=== PATIENT | female | born 1940 | race Caucasian/White ===

== ENCOUNTER 2020-02-25 23:02 | Inpatient (IN) | payer MEDICARE ==
[~2020-02-25] VITALS: Ht 165.1 cm; Wt 59.0 kg
--- NOTE | 2020-02-25 23:20 | NUR ---
Patient BIB BLS transport from [facility] for inpatient psychiatric care. Patient on 5250 hold per report. Awaiting inpatient admission to MHU. COVID19 swab sent to ER LAB. MRSA Swab send to ER LAB
[2020-02-25] MEDS ORDERED: MULT-594 PO (23:33)
[2020-02-26] MEDS ORDERED: ENOX40DI SQ
[2020-02-26] MEDS ORDERED: FLUO40CA49 PO
[2020-02-26] MEDS ORDERED: HALO10TA13 PO
[2020-02-26] MEDS ORDERED: AMLO10TA7 PO
[2020-02-26] MEDS ORDERED: BENZ2TAB7 PO
[2020-02-26] MEDS ORDERED: FLUO20CA42 PO
[2020-02-26] MEDS ORDERED: MULT-594 PO
[2020-02-26] MEDS ORDERED: ASPI-1169 PO
[2020-02-26] MEDS ORDERED: SENN-261 PO
[2020-02-26] MEDS ORDERED: ENAL20TA18 PO
[2020-02-26] MEDS ORDERED: ATOR20TA PO
--- NOTE | 2020-02-26 00:25 | NUR ---
Patient in bed, no acute distress noted. VSS
--- NOTE | 2020-02-26 01:25 | NUR ---
Patient remains in bed, awaiting COVID19 results for inpatient admission. No acute distress noted. VSS
--- NOTE | 2020-02-26 03:13 | NUR ---
Patient in bed, no acute distress noted. Will continue to monitor patient. VSS
--- NOTE | 2020-02-26 03:47 | NUR ---
Pt. admitted to MHU , under care of Melvin Estes/Mahamed HENRY Belongs List completed
[2020-02-26] MEDS ORDERED: MAG HYDROX/AL HYDROX/SIMETH 30 ML LIQUID UDC PO PRN (04:15)
[2020-02-26] MEDS ORDERED: ACETAMINOPHEN 325 MG TABLET PO PRN (04:15)
[2020-02-26] MEDS ORDERED: MAGNESIUM HYDROXIDE 30 ML LIQUID UDC PO PRN (04:15)
[2020-02-26 05:15] VITALS: BP 125/78
--- NOTE | 2020-02-26 06:34 | NUR ---
Admission Note: 79 yr old female admitted to MHU under the care of Dr Irby and Dominic Rodrigues with a dx of Psychosis. Patient has a history of Schizophrenia and Depression. Patient arrived via gurney from ER brought in by staff, admitted on a 5250 for Gravely Disabled from [facility] [place] after Pt was found sitting in urine and feces and has suffered great decline as well as no PO intake. Upon admission to the unit, VS stable, denies pain, and is in no apparent physical distress. Upon evaluation, Pt is unkempt and disheveled; she is AOx1-2 Pt verbalized understanding. Patient was reluctant to sign all paperwork. Affect is flat, mood is depressed/low. Skin assessment completed patient presented with wounds as a result of multiple falls that were photographed and placed in the chart. Weak, unsteady gait noted, PT ordered. Home meds to be reconciled, orders received. Pt belongings inventoried, contraband placed in unit locker. Patient Rights handbook and Advisement and Pt rights handbook given, unit rules explained, Pt verbalized understanding. Patient to be oriented to the unit, the phone, the restrooms, and room during day shift. Q 15 minute rounding initiated for safety.
--- NOTE | 2020-02-26 08:00 | NUR ---
Awake, confused, angry, irritable. Refused lab draw and nursing care
--- NOTE | 2020-02-26 11:50 | NUR ---
JALEN Initial Discharge Plan: Patient lives at home [address] [place] [address] ([phone]) with her . Patient's daughter, Kindra Mina ([phone]) is involved in her care. Kindra wants the patient to come live with her and believes it is unsafe for the patient to return home as her is out of town. Patient wants to return home upon discharge. JALEN will continue to work with patient, family, and MD to ensure a safe and proper discharge plan.
--- NOTE | 2020-02-26 12:06 | NUR ---
JALEN Family Contact: JALEN spoke with patient's daughter, Kindra Mina ([phone]) who is involved in her care. Kindra expressed her concerns regarding the patient neglecting her care at home since her is out of town. Kindra stated that the patient's usually helps the patient with taking her medications, eating, showering, etc. Kindra stated hat she has consulted with a television cable installer regarding getting DPOA or Conservatorship of the patient but has not yet started the process. Kindra stated that she has arranged a room in her house for the patient to move in with her making it accessible for all her needs, however patient is refusing to move in with daughter. Patient' wants to go back home with her , however pt's travels a lot and not able to provide care realtime captioner. JALEN stated that we will continue to work with the patient and as she becomes more stable, we will work with the patient to determine the safest discharge plan.
--- NOTE | 2020-02-26 12:06 | NUR ---
Firearms Report: Acid Mixer completed and submitted a [employer] firearms report for 5250 grave disability certification. A copy of report has been placed in patient chart.
--- NOTE | 2020-02-26 13:00 | NUR ---
Placed on chair. Had shampoo and shower. Hair untangled. On octaviano chair, assisted with meals.
--- NOTE | 2020-02-26 15:57 | NUR ---
Less irritable and angry, able to redirect.
[2020-02-26] MEDS: GENTAMICIN SULFATE OPHT DROP 5 ML BOTTLE EACHEYE SCH ×2 (17:55→20:35)
--- NOTE | 2020-02-26 18:01 | NUR ---
Noted whitish eye discharge and redness of both eyes. Eye drops initiated a ordered
[2020-02-26] MEDS: HALOPERIDOL 5 MG TABLET PO SCH (18:42)
[2020-02-26] MEDS: BENZTROPINE MESYLATE 1 MG TABLET PO SCH (18:42)
[2020-02-26] MEDS: SENNOSIDES 1 TABLET PO SCH (20:45)
[2020-02-26] MEDS: ATORVASTATIN 20 MG TABLET PO SCH (20:45)
[2020-02-27 07:30] VITALS: BP 164/74
[2020-02-27 07:56] LABS: BASOPHILS # (AUTO) 0.1 K/uL (0.0-8.0); BASOPHILS % (AUTO) 0.8 % (0.0-2.0); EOSINOPHILS # (AUTO) 0.1 K/uL (0.0-0.7); EOSINOPHILS % (AUTO) 1.7 % (0.0-7.0); HEMATOCRIT 33.7 % (31.2-41.9); HEMOGLOBIN 11.2 g/dL (10.9-14.3); LYMPHOCYTES # (AUTO) 1.5 K/uL (20.0-40.0); LYMPHOCYTES % (AUTO) 22.2 % (20.5-51.5); MEAN CORPUSCULAR HEMOGLOBIN 27.2 uug (24.7-32.8); MEAN CORPUSCULAR HGB CONC 33 g/dL (32.3-35.6); MEAN CORPUSCULAR VOLUME 81.7 fL (75.5-95.3); MONOCYTES # (AUTO) 0.9 K/uL (2.0-10.0); MONOCYTES % (AUTO) 13.9 % (0.0-11.0); NEUTROPHILS % (AUTO) 61.4 % (38.5-71.5); PLATELET COUNT (AUTO) 345 K/uL (179-408); RED BLOOD CELL COUNT(AUTO) 4.13 MIL/uL (3.63-4.92); WHITE BLOOD COUNT (AUTO) 6.5 K/uL (3.8-11.8)
[2020-02-27 08:20] LABS: THYROID STIMULATING HORMONE 2.297 mIU/mL (0.358-3.740)
[2020-02-27 08:37] LABS: BILIRUBIN,TOTAL 0.8 mg/dL (0.2-1.0); CREATININE 0.7 mg/dL (0.6-1.3); MAGNESIUM 2.1 mg/dL (1.8-2.4); PHOSPHOROUS 2.8 mg/dL (2.5-4.9); TOTAL PROTEIN, SERUM 6.8 g/dL (6.4-8.2)
[2020-02-27] MEDS: BENZTROPINE MESYLATE 1 MG TABLET PO SCH ×2 (09:00→18:01)
[2020-02-27] MEDS: ASPIRIN 81 MG TAB.CHEW PO SCH (09:00)
[2020-02-27] MEDS: AMLODIPINE 10 MG TABLET PO SCH ×2 (09:00→20:02)
[2020-02-27] MEDS: FLUOXETINE HCL 20 MG CAPSULE PO SCH (09:00)
[2020-02-27] MEDS: HALOPERIDOL 5 MG TABLET PO SCH ×2 (09:00→18:01)
[2020-02-27] MEDS: GENTAMICIN SULFATE OPHT DROP 5 ML BOTTLE EACHEYE SCH ×4 (09:00→20:03)
[2020-02-27] MEDS: MULTIVITAMINS,THERAPEUTIC TABLET PO SCH (09:00)
--- NOTE | 2020-02-27 11:45 | NUR ---
Patient is isolated and withdrawn to her room, she is minimal interaction with staff and is not fully participating in assessment. Patient refused AM medications, states "I don't wan't them. You can take that away." Patient was provided with education about taking medication as prescribed, but continues to refuse. Patient denies SI/HI, AH/VH but she appears internally preoccupied. Patient keeps eyes closed during the entire conversation and refusing to interact with this policy writer typist. Patient is refusing to participate in unit groups, encouraged to participate in therapeutic milieu. patient also encouraged to practice active ROM in bed. bed is in low and locked position.
--- NOTE | 2020-02-27 13:30 | NUR ---
Patient was found by nursing staff laying on her back on the floor in front of her assigned bed. Bed is in low and locked position with bed alarm ringing. Nursing staff was alerted to the patient's room because the bed alarm was heard. Patient stated that she has to use the restroom which was the reason she got out of bed. Patient was assessed. She has no visible injuries. Patient denies pain, denies hitting head on the floor, denies dizziness or lightheadedness. Ambulation ability is at baseline. Patient states that she has a bowel movement. patient was assisted by 3 staff into octaviano-chair and assisted to the restroom. patient had a bowel movement and was able to urinate. Patient assisted back to octaviano chair. VS BP 161/72, HR 76, oxygen saturation 95% on room air, temp 98.1, pain 0/10. Patient is calm, cooperative, and able to communicate her needs to staff at this time. notified, waiting for call back.
--- NOTE | 2020-02-27 15:10 | NUR ---
Patient is resting calmly and quietly in octaviano-chair. She woke up to speak to family member on the phone. No distress noted at this time. NO reports of pain or discomfort. MD instructed to monitor patient.
[2020-02-27 16:00] VITALS: BP 158/72
--- NOTE | 2020-02-27 18:27 | NUR ---
patient has been refusing medications. patient has minimal interaction with staff, refusing to participate in conversation but able to state "yes" or "no" to questions. Patient was able to feed herself dinner and able to tolerate food well. she is sitting in octaviano chair calmly and quietly. patient instructed to inform staff of needs.
[2020-02-27 20:00] VITALS: BP 165/78
[2020-02-27] MEDS: ATORVASTATIN 20 MG TABLET PO SCH (20:09)
[2020-02-27] MEDS: SENNOSIDES 1 TABLET PO SCH (20:09)
--- NOTE | 2020-02-27 20:15 | NUR ---
Received patient in the hallway, sitting in a nataly chair, she is noted A/O x 2. (She knows her name and she knows she is the hospital but does not known the name of the hospital or why she is here). Patient noted calm at this time. she is noted evasive, and withdrawn. she continue asking, "take me to my room, take me to my room. Patient was reassured for her safety. Initial, she refused V/S, but after few redirections, she agreed to have her v/s taken. B/P read 167/78mmhg and pulse 68bpm. patient has been refusing all her medication during dayshift including her norvasc 10mg PO QAM. Dr. Meneses was notify and new order obtained to give Norvasc 10mg PO one time order since she missed her morning dose. and Catapres 0.1mg PO PRN SBP>160MMHM. Order were noted. patient agreed to take her Norvasc 10mg but refused her Qhs medication (senna-lax and lipitor) and catapre PO PRN; however, after multiple redirections, patient agree to take her gentamicin eye drops. Patient also refused snacks but was able to take PO fluids. Safety and fall precaution in place. Will continue to monitor B/P closely.
--- NOTE | 2020-02-27 21:54 | NUR ---
patient B/P is 120/69mmhg and 62 pulse. pt in no distress, sleeping comfortably in her room. Safety and fall precaution in place. will continue to monitor.
[2020-02-27 21:57] VITALS: BP 120/69
--- NOTE | 2020-02-28 07:06 | NUR ---
Patient slept for approx 7.30 hrs through the night. will continue to monitor.
[2020-02-28 07:30] VITALS: BP 166/67
[2020-02-28] MEDS: HALOPERIDOL 5 MG TABLET PO SCH ×2 (11:06→17:39)
[2020-02-28] MEDS: MULTIVITAMINS,THERAPEUTIC TABLET PO SCH (11:06)
[2020-02-28] MEDS: FLUOXETINE HCL 20 MG CAPSULE PO SCH (11:07)
[2020-02-28] MEDS: ASPIRIN 81 MG TAB.CHEW PO SCH (11:07)
[2020-02-28] MEDS: BENZTROPINE MESYLATE 1 MG TABLET PO SCH ×2 (11:08→17:39)
[2020-02-28] MEDS: AMLODIPINE 10 MG TABLET PO SCH (11:09)
[2020-02-28] MEDS: GENTAMICIN SULFATE OPHT DROP 5 ML BOTTLE EACHEYE SCH ×4 (11:13→20:12)
[2020-02-28 16:00] VITALS: BP 115/47
--- NOTE | 2020-02-28 17:35 | NUR ---
Unable to do EKG, pt is combative and refusing.. RN aware, sts try again tonight after meds given and pt is calm.. Will endorse to PM shift to follow up and perform EKG..
--- NOTE | 2020-02-28 19:58 | NUR ---
Patient received in the Kylee chair. Awake and alert, but confused. Patient is refusing all of her medications and her eye drops, despite much encouragement. Patient believes that the sports writer is her "daughter"whom she" went to court with". Multiple attempts to reorient this patient to the reality of the situation, place and staff. Patient seems agitated this evening and is being noncompliant. Continuing to monitor patient for safety and behavior escalation.
[2020-02-28 20:00] VITALS: BP 117/83
[2020-02-28] MEDS: ATORVASTATIN 20 MG TABLET PO SCH (20:13)
[2020-02-28] MEDS: SENNOSIDES 1 TABLET PO SCH (20:13)
[2020-02-29 07:30] VITALS: BP 147/65
[2020-02-29] MEDS: ASPIRIN 81 MG TAB.CHEW PO SCH ×2 (08:10→09:00)
[2020-02-29] MEDS: HALOPERIDOL 5 MG TABLET PO SCH ×3 (08:10→16:28)
[2020-02-29] MEDS: AMLODIPINE 10 MG TABLET PO SCH ×2 (08:11→09:00)
[2020-02-29] MEDS: BENZTROPINE MESYLATE 1 MG TABLET PO SCH ×3 (08:11→16:28)
[2020-02-29] MEDS: FLUOXETINE HCL 20 MG CAPSULE PO SCH ×2 (08:11→09:00)
[2020-02-29] MEDS: MULTIVITAMINS,THERAPEUTIC TABLET PO SCH ×2 (08:11→09:00)
[2020-02-29] MEDS: GENTAMICIN SULFATE OPHT DROP 5 ML BOTTLE EACHEYE SCH ×4 (08:12→20:23)
--- NOTE | 2020-02-29 11:07 | NUR ---
GPS NOTE: Patient given a shower this am, but was combative and hitting staff. Patient again refused to take medications despite education and encouragement. Doctors are aware. Patient is angry and irritable with communications writer and staff and unable to engage in any meaningful conversation . Appetite is poor. Continuing to provide a safe environment and monitor patients compliance. No acute behavioral issues at this time.
[2020-02-29 13:55] LABS: *BILIRUBIN,URIN NEGATIVE (NEGATIVE); *BLOOD, URINE NEGATIVE (NEGATIVE); *CLARITY,URINE CLEAR (CLEAR); *COLOR,URINE YELLOW (YELLOW); *KETONES,URINE NEGATIVE (NEGATIVE); LEUKOCYTE ESTERASE ,URINE 1+ (NEGATIVE); NITRITE, URINE NEGATIVE (NEGATIVE); UGLUCOSE NEGATIVE (NEGATIVE)
[2020-02-29 16:19] VITALS: BP 158/72
--- NOTE | 2020-02-29 17:14 | NUR ---
UA sent to lab. UTI noted. Doctor aware and orders received for antibiotics. Patient has been noncompliant with oral medications so far, will encourage and educate patient on the importance of medication compliance.
[2020-02-29 18:27] LABS: BACTERIA,URINE FEW /HPF (NONE SEEN); SQUAMOUS EPITHELIAL CELL,UR FEW /HPF (NONE SEEN)
[2020-02-29] MEDS: ATORVASTATIN 20 MG TABLET PO SCH (20:22)
[2020-02-29] MEDS: SENNOSIDES 1 TABLET PO SCH (20:31)
[2020-02-29 20:47] VITALS: BP 178/76
[2020-02-29] MEDS: CEphaleXIN 500 MG CAPSULE PO SCH (21:30)
--- NOTE | 2020-03-01 02:08 | NUR ---
RECEIVED PATIENT IN BED.NOTED ISOLATIVE WITH MINIMAL INTERACTION.ALSO MILDLY IRRITATED. MOOD LOW.DENIES SI/HI BUT ASKED "WHY AM I HERE"? I NEED TO GO FEED MY CAT WHO IS A ARTHUR".RE DIRECTED. SHE WAS MEDICATION COMPLIANT.SNACKS GIVEN AND WELL TAKEN.VISUAL CHECKS MADE ON HER FOR SAFETY AND BED ALARMS SET.WILL CONTINUE TO MONITOR.
[2020-03-01] MEDS: CEphaleXIN 500 MG CAPSULE PO SCH ×3 (06:26→22:00)
--- NOTE | 2020-03-01 06:47 | NUR ---
SLEPT FOR 4:45HOURS. SHE IS MED COMPLIANT.
[2020-03-01] MEDS: BENZTROPINE MESYLATE 1 MG TABLET PO SCH ×3 (09:00→17:00)
[2020-03-01] MEDS: HALOPERIDOL 5 MG TABLET PO SCH ×3 (09:00→17:00)
[2020-03-01] MEDS: FLUOXETINE HCL 20 MG CAPSULE PO SCH ×2 (09:00→09:33)
[2020-03-01] MEDS: AMLODIPINE 10 MG TABLET PO SCH ×2 (09:00→09:33)
[2020-03-01] MEDS: MULTIVITAMINS,THERAPEUTIC TABLET PO SCH ×2 (09:00→09:33)
[2020-03-01] MEDS: GENTAMICIN SULFATE OPHT DROP 5 ML BOTTLE EACHEYE SCH ×3 (09:00→12:54)
[2020-03-01] MEDS: ASPIRIN 81 MG TAB.CHEW PO SCH ×2 (09:00→09:33)
[2020-03-01 09:16] VITALS: BP 158/85
[2020-03-01 17:38] VITALS: BP 159/64
[2020-03-01 20:00] VITALS: BP 156/72
[2020-03-01] MEDS: ATORVASTATIN 20 MG TABLET PO SCH (20:08)
[2020-03-01] MEDS: SENNOSIDES 1 TABLET PO SCH (20:08)
--- NOTE | 2020-03-01 22:05 | NUR ---
Pt refused all HS medications despite multiple prompts. cafe team member aware.
[2020-03-01] MEDS ORDERED: CLONIDINE-TTS 1 PATCH TD ONE (22:34)
[2020-03-01] MEDS: CLONIDINE-TTS 1 PATCH TD SCH (22:35)
--- NOTE | 2020-03-01 22:45 | NUR ---
Pharmacy Note: Clonidine patch administered late due to it not being available in the [facility]. Nurse machine operations supervisor brought it to MHU at 2215. Patch placed at 2235 on (R) upper shoulder.
--- NOTE | 2020-03-02 05:34 | NUR ---
Received Pt in bed sleeping, extremely angry upon waking. Pt yelled at this proposal writer to leave her alone. Remains uncooperative and continues to refuse all medications despite being educated on the benefits of taking it and the risks of refusing. Exhibits poor anger management and impaired judgement as Pt denies any need for help and believes nothing is wrong with her. Pt is uncooperative with staff and non-compliant with treatment and care. No c/o pain, initially refused HS VS, then allowed another staff member to take them. BP elevated st beginning of shift, Clonidine patch applied, Pt refused BP re-check. In no apparent physical distress. Remains a high fall risk, Pt's gait is very unsteady and she refuses to use the FWW provided for her. FWW remains at bedside, Pt re-educated regarding personal safety and encouraged to use the walker. Pt remains resistant to staff direction and care.
[2020-03-02] MEDS: CEphaleXIN 500 MG CAPSULE PO SCH ×3 (06:00→22:00)
[2020-03-02 07:44] VITALS: BP 160/83
[2020-03-02] MEDS: ASPIRIN 81 MG TAB.CHEW PO SCH (08:32)
[2020-03-02] MEDS: MULTIVITAMINS,THERAPEUTIC TABLET PO SCH (08:32)
[2020-03-02] MEDS: FLUOXETINE HCL 20 MG CAPSULE PO SCH (08:32)
[2020-03-02] MEDS: BENZTROPINE MESYLATE 1 MG TABLET PO SCH ×2 (08:32→16:31)
[2020-03-02] MEDS: AMLODIPINE 10 MG TABLET PO SCH (08:32)
[2020-03-02] MEDS: HALOPERIDOL 5 MG TABLET PO SCH ×2 (08:32→16:31)
--- NOTE | 2020-03-02 10:56 | NUR ---
JALEN Individual Intervention: SW met with patient to provide brief individual counseling and help patient to gain insight into her presenting problems. Patient presents agitated and verbally aggressive. Patient yelled at this writer producer "Go away!". This writer producer encouraged patient to join group and interact with peers however patient was not very receptive at this time due to her labile mood.
--- NOTE | 2020-03-02 13:51 | NUR ---
GPS: Nursing Notes: Noncompliance with Medication: Patient is awake and responding to her name, poor anger management, resistant with nursing care, gets easily irritable when redirected, loud and pressured speech, refusing her medications, believes that there is nothing wrong with her, poor appetite, disorganized, disoriented, explained the pros and cons of medications, but stated "GO AWAY...STUPID..", "I AM NOT A PATIENT HERE.. YOU ARE A LIAR..", unable to formulate a viable plan for self care, continue with treatment plan.
[2020-03-02 16:00] VITALS: BP 142/77
[2020-03-02 19:43] VITALS: BP 131/66
[2020-03-02] MEDS: ATORVASTATIN 20 MG TABLET PO SCH (20:08)
[2020-03-02] MEDS: SENNOSIDES 1 TABLET PO SCH (20:08)
[2020-03-03] MEDS: CEphaleXIN 500 MG CAPSULE PO SCH ×3 (06:00→21:20)
[2020-03-03 07:30] VITALS: BP 139/67
[2020-03-03] MEDS: BENZTROPINE MESYLATE 1 MG TABLET PO SCH ×2 (08:50→17:32)
[2020-03-03] MEDS: HALOPERIDOL 5 MG TABLET PO SCH ×2 (08:50→17:32)
[2020-03-03] MEDS: FLUOXETINE HCL 20 MG CAPSULE PO SCH (08:50)
[2020-03-03] MEDS: ASPIRIN 81 MG TAB.CHEW PO SCH (08:58)
[2020-03-03] MEDS: AMLODIPINE 10 MG TABLET PO SCH (08:59)
[2020-03-03] MEDS: MULTIVITAMINS,THERAPEUTIC TABLET PO SCH (09:00)
[2020-03-03 16:00] VITALS: BP 121/77
[2020-03-03 20:35] VITALS: BP 122/61
[2020-03-03] MEDS: SENNOSIDES 1 TABLET PO SCH (21:20)
[2020-03-03] MEDS: ATORVASTATIN 20 MG TABLET PO SCH (21:20)
--- NOTE | 2020-03-03 22:32 | NUR ---
Nursing note: Received patient in the hallway sitting in a nataly chair. Patient noted A/O x 2. (name and place) she is noted calm upon approached. Pt was able to comply with [facility] medications (there are no psychotropic medication schedule at [facility]). she is poor hisorian. V/S stable. pt is reassured for her safety. safety and fall precaution in place. will continue to monitor
[2020-03-04] MEDS: CEphaleXIN 500 MG CAPSULE PO SCH ×3 (06:00→21:06)
[2020-03-04 08:48] VITALS: BP 141/71
[2020-03-04] MEDS: BENZTROPINE MESYLATE 1 MG TABLET PO SCH ×2 (09:00→17:00)
[2020-03-04] MEDS: HALOPERIDOL 5 MG TABLET PO SCH ×2 (09:00→17:00)
[2020-03-04] MEDS: FLUOXETINE HCL 20 MG CAPSULE PO SCH (09:00)
[2020-03-04] MEDS: MULTIVITAMINS,THERAPEUTIC TABLET PO SCH (09:00)
[2020-03-04] MEDS: AMLODIPINE 10 MG TABLET PO SCH (09:00)
[2020-03-04] MEDS: ASPIRIN 81 MG TAB.CHEW PO SCH (09:00)
--- NOTE | 2020-03-04 10:07 | NUR ---
Patient is isolative, withdrawn, and guarded. She has minimal interaction with staff and peers. During assessment, she only answers with "yes" or "no" and shakes her head. Patient refused all medications this AM. When given medications, she kept the blanket pulled over head head. Patient was provided with education about the importance of taking medication as prescribed, but refuses. Patient denies SI/HI, AH/VH but she appears internally preoccupied. Patient is refusing to participate in unit groups, encouraged to participate in therapeutic milieu. Patient also encouraged to practice active ROM in bed. Bed is in low and locked position with bed alarm on.
[2020-03-04 15:02] VITALS: BP 97/78
[2020-03-04] MEDS: HALOPERIDOL LACTATE 5 MG/1 ML VIAL IM PRN (17:04)
[2020-03-04 20:00] VITALS: BP 126/61
[2020-03-04] MEDS: ATORVASTATIN 20 MG TABLET PO SCH (20:25)
[2020-03-04] MEDS: SENNOSIDES 1 TABLET PO SCH (20:25)
[2020-03-05] MEDS: CEphaleXIN 500 MG CAPSULE PO SCH ×2 (06:00→14:00)
--- NOTE | 2020-03-05 06:52 | NUR ---
patient slept for approx. 6.30hrs through the night. will continue to monitor.
[2020-03-05 07:30] VITALS: BP 167/75
[2020-03-05] MEDS: MULTIVITAMINS,THERAPEUTIC TABLET PO SCH (09:00)
[2020-03-05] MEDS: BENZTROPINE MESYLATE 1 MG TABLET PO SCH ×2 (09:00→17:00)
[2020-03-05] MEDS: HALOPERIDOL 5 MG TABLET PO SCH ×2 (09:00→17:00)
[2020-03-05] MEDS: AMLODIPINE 10 MG TABLET PO SCH (09:00)
[2020-03-05] MEDS: FLUOXETINE HCL 20 MG CAPSULE PO SCH (09:00)
[2020-03-05] MEDS: ASPIRIN 81 MG TAB.CHEW PO SCH (09:00)
[2020-03-05] MEDS: ENSURE WITH FIBER 237 ML LIQUID (CHOCOLATE) PO SCH ×2 (10:15→17:00)
--- NOTE | 2020-03-05 10:55 | NUR ---
JALEN APS Report: JALEN submitted an APS report (Intake ID [id number]) on 03/05/2020 at 10:55 AM due to patient self-neglect.
--- NOTE | 2020-03-05 11:06 | NUR ---
JALEN APS Contact: JALEN spoke with JALEN Gomez from [facility]PS ([phone]) regarding patient's treatment and discharge plan. Patricia stated to keep her informed of the patient's status and discharge updates.
--- NOTE | 2020-03-05 11:21 | NUR ---
JALEN Individual Intervention: SW met with patient in order to discuss discharge planning and options. Patient looked blankly at this tech writer and did not verbally respond. Patient attempted to ask patient questions and patient was mute and did not acknowledge this writers presence.
--- NOTE | 2020-03-05 11:34 | NUR ---
JALEN Coordination of Care: SW [facility]
[2020-03-05] MEDS: HALOPERIDOL LACTATE 5 MG/1 ML VIAL IM PRN (12:21)
--- NOTE | 2020-03-05 14:57 | NUR ---
JALEN Family Contact: JALEN spoke with patient's daughter, Kindra Mina ([phone]) regarding discharge plan. This telegraphic typewriter operator chief explained that APS is involved and this case was discussed with the treatment team that the patient is not safe to go back home upon discharge. Kindra was on board and stated that she agrees with this plan and [facility] the [facility] [place] upon discharge.
[2020-03-05] MEDS ORDERED: HALOPERIDOL DECANOATE 50 MG/1 ML AMPUL IM ONE (16:00)
[2020-03-05 20:12] VITALS: BP 145/76
[2020-03-05] MEDS: SENNOSIDES 1 TABLET PO SCH (20:58)
[2020-03-05] MEDS: ATORVASTATIN 20 MG TABLET PO SCH (20:58)
[2020-03-06 07:30] VITALS: BP 137/68
[2020-03-06] MEDS: ENSURE WITH FIBER 237 ML LIQUID (CHOCOLATE) PO SCH ×2 (09:00→17:46)
[2020-03-06] MEDS: MULTIVITAMINS,THERAPEUTIC TABLET PO SCH (09:00)
[2020-03-06] MEDS: BENZTROPINE MESYLATE 1 MG TABLET PO SCH ×2 (09:00→17:25)
[2020-03-06] MEDS: ASPIRIN 81 MG TAB.CHEW PO SCH (09:00)
[2020-03-06] MEDS: AMLODIPINE 10 MG TABLET PO SCH (09:00)
[2020-03-06] MEDS: HALOPERIDOL 5 MG TABLET PO SCH ×2 (09:00→17:24)
[2020-03-06] MEDS: FLUOXETINE HCL 20 MG CAPSULE PO SCH (09:00)
[2020-03-06] MEDS: HALOPERIDOL LACTATE 5 MG/1 ML VIAL IM PRN (11:02)
[2020-03-06 16:00] VITALS: BP 103/55
[2020-03-06] MEDS: ATORVASTATIN 20 MG TABLET PO SCH (20:19)
[2020-03-06] MEDS: SENNOSIDES 1 TABLET PO SCH (20:19)
[2020-03-06 20:20] VITALS: BP 116/60
[2020-03-06] MEDS: TEMAZEPAM 7.5 MG CAPSULE PO PRN (23:42)
--- NOTE | 2020-03-07 06:12 | NUR ---
GPS: Remain calm and cooperative with meds and care. slept 6 hrs through the night after sleeping meds given. assisted with adl's. continue plan of care.
[2020-03-07 07:30] VITALS: BP 164/95
[2020-03-07] MEDS: ENSURE WITH FIBER 237 ML LIQUID (CHOCOLATE) PO SCH ×2 (08:00→17:00)
[2020-03-07] MEDS: HALOPERIDOL 5 MG TABLET PO SCH ×2 (08:57→20:25)
[2020-03-07] MEDS: AMLODIPINE 10 MG TABLET PO SCH (08:58)
[2020-03-07] MEDS: ASPIRIN 81 MG TAB.CHEW PO SCH (08:58)
[2020-03-07] MEDS: BENZTROPINE MESYLATE 1 MG TABLET PO SCH ×2 (08:58→20:25)
[2020-03-07] MEDS: FLUOXETINE HCL 20 MG CAPSULE PO SCH (08:59)
[2020-03-07] MEDS: MULTIVITAMINS,THERAPEUTIC TABLET PO SCH (09:00)
[2020-03-07] MEDS: CLONIDINE HCL 0.1 MG TABLET PO PRN (16:32)
[2020-03-07 16:54] VITALS: BP 196/85
[2020-03-07] MEDS ORDERED: BENZTROPINE MESYLATE 0.5 MG TABLET PO SCH (17:00)
[2020-03-07 18:20] VITALS: BP 92/52
--- NOTE | 2020-03-07 18:25 | NUR ---
noted patient's B/P 196/88,Catapres 0.1 mg given then rechecked B/P 92/52.
[2020-03-07 20:20] VITALS: BP 94/51
[2020-03-07] MEDS: ATORVASTATIN 20 MG TABLET PO SCH (20:26)
[2020-03-07] MEDS: SENNOSIDES 1 TABLET PO SCH (20:32)
--- NOTE | 2020-03-08 03:07 | NUR ---
RECEIVED PATIENT IN BED. APPEARS ISOLATIVE,WITHDRAWN AND MOOD WAS LOW. GUARDED WITH MINIMAL INTERACTION WITH STAFF. REFUSED TO SAY IF SHE HAS AH/VH. NOTED ALSO WITH UNSTEADY GAIT AND SAFETY MEASURES PUT IN PLACE. SHE IS HOWEVER MEDICATION COMPLIANT WITH 2 PROMPTING.VISUA CHECKS MADE ON HER FOR SAFETY. WILL CONTINUE TO MONITOR.
--- NOTE | 2020-03-08 06:34 | NUR ---
SHE SLEPT WELL FOR 7:30HOURS.SHE ALSO HAD A SHOWER.
[2020-03-08] MEDS: AMLODIPINE 10 MG TABLET PO SCH (09:00)
[2020-03-08] MEDS: BENZTROPINE MESYLATE 1 MG TABLET PO SCH ×2 (09:46→20:38)
[2020-03-08] MEDS: ASPIRIN 81 MG TAB.CHEW PO SCH (09:46)
[2020-03-08] MEDS: FLUOXETINE HCL 20 MG CAPSULE PO SCH (09:46)
[2020-03-08] MEDS: HALOPERIDOL 5 MG TABLET PO SCH ×2 (09:46→20:39)
[2020-03-08] MEDS: MULTIVITAMINS,THERAPEUTIC TABLET PO SCH (10:03)
[2020-03-08] MEDS: ENSURE WITH FIBER 237 ML LIQUID (CHOCOLATE) PO SCH ×2 (10:03→17:01)
--- NOTE | 2020-03-08 15:10 | NUR ---
Received patient in her assigned bed, bed is in low and locked position. patient is guarded, withdrawn, and restless. She is unable to maintain a linear and logical conversation with staff. she believes that her is coming to visit her. her speech is hyperverbal and tangential. patient denies SI/HI, denies AH/VH but appears internally preoccupied. patient is adherent with medication, no adverse reaction noted. she is instructed to communicate needs to staff appropriately, educated about impulse control. patient requires frequent redirection and reality orientation.
[2020-03-08 15:39] VITALS: BP 133/58
[2020-03-08] MEDS ORDERED: HALOPERIDOL DECANOATE 50 MG/1 ML AMPUL IM ONE (16:00)
[2020-03-08 20:36] VITALS: BP 146/64
[2020-03-08] MEDS: ATORVASTATIN 20 MG TABLET PO SCH (20:39)
[2020-03-08] MEDS: SENNOSIDES 1 TABLET PO SCH (20:48)
[2020-03-08] MEDS: CLONIDINE-TTS 1 PATCH TD SCH (21:02)
--- NOTE | 2020-03-09 02:41 | NUR ---
RECEIVED PATIENT IN BED. APPEARS ISOLATIVE,WITHDRAWN AND MOOD WAS LOW. GUARDED WITH MINIMAL INTERACTION THAT IS TANGENTIAL.APPEARS INTERNALLY PRE OCCUPIED. SHE INITIALLY REFUSED HER MEDICATIONS EVEN WITH SEVERAL PROMPTING AND SAID"YOU WILL NOT GIVE ME SOMETHING ELSE YOU DAUGHTER OF JULIET".'ITS THE TRUTH'. SHE ALSO ASKED FOR A CIGARETTE. SHE WAS TOLD THIS IS A NON SMOKING FACILITY. AFTER A WHILE SHE TOOK HER MEDICATION FROM ANOTHER NURSE. NOTED WITH UNSTEADY GAIT AND SAFETY MEASURES PUT IN PLACE. VISUAL CHECKS MADE ON HER FOR SAFETY. WILL CONTINUE TO MONITOR.
--- NOTE | 2020-03-09 06:37 | NUR ---
SHE SLEPT FOR 5:00HOURS
[2020-03-09 07:30] VITALS: BP 167/61
[2020-03-09] MEDS: FLUOXETINE HCL 20 MG CAPSULE PO SCH (08:21)
[2020-03-09] MEDS: BENZTROPINE MESYLATE 1 MG TABLET PO SCH ×2 (08:21→20:47)
[2020-03-09] MEDS: AMLODIPINE 10 MG TABLET PO SCH (08:22)
[2020-03-09] MEDS: ASPIRIN 81 MG TAB.CHEW PO SCH (08:22)
[2020-03-09] MEDS: HALOPERIDOL 5 MG TABLET PO SCH ×2 (08:22→20:47)
[2020-03-09] MEDS: ENSURE WITH FIBER 237 ML LIQUID (CHOCOLATE) PO SCH ×2 (08:29→16:40)
[2020-03-09] MEDS: MULTIVITAMINS,THERAPEUTIC TABLET PO SCH (08:30)
[2020-03-09 16:30] VITALS: BP 93/64
--- NOTE | 2020-03-09 18:23 | NUR ---
patient compliant with all medication ,up to octaviano-chair ,assisted with all ADLS, will continue close monitoring.
[2020-03-09 19:59] VITALS: BP 129/61
[2020-03-09] MEDS: SENNOSIDES 1 TABLET PO SCH (20:47)
[2020-03-09] MEDS: ATORVASTATIN 20 MG TABLET PO SCH (20:47)
[2020-03-10 08:50] LABS: BASOPHILS # (AUTO) 0.1 K/uL (0.0-8.0); BASOPHILS % (AUTO) 0.8 % (0.0-2.0); EOSINOPHILS # (AUTO) 0.1 K/uL (0.0-0.7); EOSINOPHILS % (AUTO) 1.2 % (0.0-7.0); HEMATOCRIT 38.8 % (31.2-41.9); HEMOGLOBIN 12.7 g/dL (10.9-14.3); LYMPHOCYTES % (AUTO) 14.1 % (20.5-51.5); MEAN CORPUSCULAR HEMOGLOBIN 27.1 uug (24.7-32.8); MEAN CORPUSCULAR HGB CONC 33 g/dL (32.3-35.6); MEAN CORPUSCULAR VOLUME 82.8 fL (75.5-95.3); MONOCYTES # (AUTO) 0.6 K/uL (2.0-10.0); MONOCYTES % (AUTO) 8.9 % (0.0-11.0); NEUTROPHILS # (AUTO) 5.3 K/uL (1.8-8.9); PLATELET COUNT (AUTO) 429 K/uL (179-408); RED BLOOD CELL COUNT(AUTO) 4.69 MIL/uL (3.63-4.92); WHITE BLOOD COUNT (AUTO) 7.1 K/uL (3.8-11.8)
[2020-03-10 08:59] LABS: CREATININE 0.9 mg/dL (0.6-1.3)
[2020-03-10 09:00] VITALS: BP 100/35
[2020-03-10] MEDS: AMLODIPINE 10 MG TABLET PO SCH (09:00)
[2020-03-10] MEDS: MULTIVITAMINS,THERAPEUTIC TABLET PO SCH (09:22)
[2020-03-10] MEDS: FLUOXETINE HCL 20 MG CAPSULE PO SCH (09:22)
[2020-03-10] MEDS: HALOPERIDOL 5 MG TABLET PO SCH ×2 (09:22→20:39)
[2020-03-10] MEDS: ASPIRIN 81 MG TAB.CHEW PO SCH (09:23)
[2020-03-10] MEDS: ENSURE WITH FIBER 237 ML LIQUID (CHOCOLATE) PO SCH ×2 (09:23→16:56)
[2020-03-10] MEDS: BENZTROPINE MESYLATE 1 MG TABLET PO SCH ×2 (09:30→20:39)
[2020-03-10 16:00] VITALS: BP 125/46
[2020-03-10 20:04] VITALS: BP 145/62
[2020-03-10] MEDS: SENNOSIDES 1 TABLET PO SCH (20:39)
[2020-03-10] MEDS: ATORVASTATIN 20 MG TABLET PO SCH (20:39)
[2020-03-11 07:30] VITALS: BP 160/71
--- NOTE | 2020-03-11 08:45 | NUR ---
JALEN FAMILY CONTACT: JALEN spoke with patient's daughter, Kindra Mina ([phone]) regarding discharge plan. Daughter wants the [facility] to [facility] [place] upon discharge.
[2020-03-11] MEDS: ENSURE WITH FIBER 237 ML LIQUID (CHOCOLATE) PO SCH ×2 (08:47→17:32)
[2020-03-11] MEDS: ASPIRIN 81 MG TAB.CHEW PO SCH (08:49)
[2020-03-11] MEDS: BENZTROPINE MESYLATE 1 MG TABLET PO SCH ×2 (08:49→20:50)
[2020-03-11] MEDS: FLUOXETINE HCL 20 MG CAPSULE PO SCH (08:50)
[2020-03-11] MEDS: AMLODIPINE 10 MG TABLET PO SCH (08:50)
[2020-03-11] MEDS: MULTIVITAMINS,THERAPEUTIC TABLET PO SCH (08:50)
[2020-03-11] MEDS: HALOPERIDOL 5 MG TABLET PO SCH ×2 (08:50→20:50)
--- NOTE | 2020-03-11 09:07 | NUR ---
JALEN FAMILY CONTACT: SW spoke with patient's daughter, Kindra Mina ([phone]) and informed her pt will be discharged on [facility]15/[facility] [place]. Daughter agreed with discharge plan.
--- NOTE | 2020-03-11 12:12 | NUR ---
Received patient in her assigned bed, bed is in low and locked position. patient is isolative to her assigned room, guarded, and withdrawn. She is able to make needs known to staff and to follow direction. she is disheveled. her speech is garbled and she is hyperverbal. patient denies SI/HI, denies AH/VH. patient is adherent with medication, no adverse reaction noted. she is instructed to communicate needs to staff appropriately, educated about impulse control. patient requires frequent redirection and reality orientation.
[2020-03-11 16:22] VITALS: BP 127/61
[2020-03-11] MEDS: CLONIDINE HCL 0.1 MG TABLET PO PRN (20:50)
[2020-03-11] MEDS: ATORVASTATIN 20 MG TABLET PO SCH (20:50)
[2020-03-11] MEDS: SENNOSIDES 1 TABLET PO SCH (20:50)
--- NOTE | 2020-03-11 20:50 | NUR ---
GPS: Pt's b/p 168/73. Denies headaches,n/v nor any c/o pain verbalized. Clonidine 0.1mg PO given for SBP>160. Will monitor effectiveness.
--- NOTE | 2020-03-11 22:10 | NUR ---
GPS: Pt.refusing to have B/P re-checked despite explanation of importance. Benefits explained but continues to refuse. Pt.asymptomatic at this time.
[2020-03-12 07:30] VITALS: BP 119/45
[2020-03-12] MEDS: FLUOXETINE HCL 20 MG CAPSULE PO SCH (08:31)
[2020-03-12] MEDS: ASPIRIN 81 MG TAB.CHEW PO SCH (08:31)
[2020-03-12] MEDS: MULTIVITAMINS,THERAPEUTIC TABLET PO SCH (08:31)
[2020-03-12] MEDS: HALOPERIDOL 5 MG TABLET PO SCH ×2 (08:31→20:10)
[2020-03-12] MEDS: BENZTROPINE MESYLATE 1 MG TABLET PO SCH ×2 (08:31→20:06)
[2020-03-12] MEDS: ENSURE WITH FIBER 237 ML LIQUID (CHOCOLATE) PO SCH ×2 (08:32→17:00)
[2020-03-12] MEDS: AMLODIPINE 10 MG TABLET PO SCH (08:32)
[2020-03-12 19:49] VITALS: BP 125/60
[2020-03-12] MEDS: SENNOSIDES 1 TABLET PO SCH (20:06)
[2020-03-12] MEDS: ATORVASTATIN 20 MG TABLET PO SCH (20:07)
--- NOTE | 2020-03-13 05:13 | NUR ---
GPS - No new changes noted, pt cooperative with routine medications. Still noted confusion and forgetfulness. Was able to redirect with minor behavior during night. Kept safe with frequent head check continue.
[2020-03-13 07:30] VITALS: BP 124/55
[2020-03-13] MEDS: BENZTROPINE MESYLATE 1 MG TABLET PO SCH ×2 (08:32→21:32)
[2020-03-13] MEDS: FLUOXETINE HCL 20 MG CAPSULE PO SCH (08:32)
[2020-03-13] MEDS: ASPIRIN 81 MG TAB.CHEW PO SCH (08:32)
[2020-03-13] MEDS: AMLODIPINE 10 MG TABLET PO SCH (08:33)
[2020-03-13] MEDS: HALOPERIDOL 5 MG TABLET PO SCH ×2 (08:33→21:32)
[2020-03-13] MEDS: MULTIVITAMINS,THERAPEUTIC TABLET PO SCH (08:35)
[2020-03-13] MEDS: ENSURE WITH FIBER 237 ML LIQUID (CHOCOLATE) PO SCH ×2 (08:37→16:07)
[2020-03-13 16:00] VITALS: BP 135/63
--- NOTE | 2020-03-13 16:28 | NUR ---
refused blood draw today, will try do in am
--- NOTE | 2020-03-13 18:09 | NUR ---
resting well in room, oob to hallway via [employer] , tolerated well. spoke with daughter, shannan, glad of conversation. denies any pain or discomfort. appetite fair. refused blood draw, able to obtain urine for lab. anxious for possible discharge.
--- NOTE | 2020-03-13 18:31 | NUR ---
error, no urine obtained, had x 1 bm.
--- NOTE | 2020-03-13 18:41 | NUR ---
patient refused to obtain urine by straight cath, will do in am to void.
[2020-03-13 20:00] VITALS: BP 144/63
[2020-03-13] MEDS: CLONAZEPAM 0.5 MG TABLET PO PRN ×2 (21:32→22:35)
[2020-03-13] MEDS: ATORVASTATIN 20 MG TABLET PO SCH (21:32)
[2020-03-13] MEDS: SENNOSIDES 1 TABLET PO SCH (21:32)
--- NOTE | 2020-03-14 04:52 | NUR ---
GPS/NSG Patient first observed lying in bed appeared to be asleep. Disheveled/unkempt appearance, guarded on approach, poor impulse control. Patient compliant with HS medication with minimal prompting. Patient requires moderate assist to the bathroom, able to ambulate however gait observed to be unsteady. Continue to monitor for safety as well as provide a therapeutic environment. Plan of Care in place.
[2020-03-14 07:30] VITALS: BP 141/60
[2020-03-14] MEDS: ENSURE WITH FIBER 237 ML LIQUID (CHOCOLATE) PO SCH ×2 (08:29→17:31)
[2020-03-14] MEDS: HALOPERIDOL 5 MG TABLET PO SCH ×2 (08:32→21:12)
[2020-03-14] MEDS: AMLODIPINE 10 MG TABLET PO SCH (08:32)
[2020-03-14] MEDS: ASPIRIN 81 MG TAB.CHEW PO SCH (08:32)
[2020-03-14] MEDS: MULTIVITAMINS,THERAPEUTIC TABLET PO SCH (08:32)
[2020-03-14] MEDS: BENZTROPINE MESYLATE 1 MG TABLET PO SCH ×2 (08:32→21:12)
[2020-03-14] MEDS ORDERED: FLUOXETINE HCL 20 MG CAPSULE PO SCH (09:00)
[2020-03-14] MEDS: FLUOXETINE HCL 10 MG CAPSULE PO SCH (09:24)
--- NOTE | 2020-03-14 11:54 | NUR ---
patient sitting in bed isolative and withdrawn, cooperative, redirectable, minimal interaction with staff. Patient minimally participates in assessment, she stays quiet and only answers with short responses. Patient denies SI/HI, denies AH/VH but appears internally preoccupied. patient is adherent with medication after prompting. patient is encouraged to participate in the unit groups and milieu but she refuses. bed is in low and locked position.
[2020-03-14 15:13] VITALS: BP 138/63
[2020-03-14 20:03] VITALS: BP 140/62
[2020-03-14] MEDS: SENNOSIDES 1 TABLET PO SCH (21:12)
[2020-03-14] MEDS: ATORVASTATIN 20 MG TABLET PO SCH (21:12)
[2020-03-14] MEDS: TEMAZEPAM 7.5 MG CAPSULE PO PRN (21:12)
--- NOTE | 2020-03-15 06:13 | NUR ---
GPS/NSG Patient first observed lying in bed appeared to be asleep. Disheveled/unkempt appearance, guarded on approach, provides short responses, demonstrates poor impulse control when attempts to engage are made. Patient compliant with HS medication with minimal prompting. Patient requires moderate assist to the bathroom, able to ambulate however gait observed to be unsteady. Continue to monitor for safety as well as provide a therapeutic environment. Continue Plan of Care. Addendum: 03/15/20 at 0630 by THANIA SEBASTIAN RN Patient refused a.m. labs ordered for today. Asked lab to retry later, will andorse to oncoming shift.
[2020-03-15 07:30] VITALS: BP 140/65
--- NOTE | 2020-03-15 08:29 | NUR ---
SW Discharge Note: Patient will be discharged to [facility] [address] [place] [address] ([phone]). Patient will be provided Ambulance transportation at 12PM. Spoke with Val, Admin Coordinator at the facility who states they are ready to accept the patient today. Patient is aware and agreeable with discharge plans. Patient is unable to plan for self-care at this time, however, is willing to accept care at [facility]. Patient denies any suicidal or homicidal ideation. Patient will follow-up at the facility with Dr. Irby Psychiatrist and Dr. Garcia Tent Worker. Patient presents with calm mood and congruent affect. Pts daughter, Kindra ([phone]) is aware and agreeable with discharge plan.
[2020-03-15] MEDS: FLUOXETINE HCL 10 MG CAPSULE PO SCH (08:48)
[2020-03-15] MEDS: BENZTROPINE MESYLATE 1 MG TABLET PO SCH (08:48)
[2020-03-15] MEDS: HALOPERIDOL 5 MG TABLET PO SCH (08:48)
[2020-03-15] MEDS: ASPIRIN 81 MG TAB.CHEW PO SCH (08:48)
[2020-03-15] MEDS: MULTIVITAMINS,THERAPEUTIC TABLET PO SCH (08:48)
[2020-03-15 08:49] VITALS: BP 140/65
[2020-03-15] MEDS: ENSURE WITH FIBER 237 ML LIQUID (CHOCOLATE) PO SCH (08:49)
[2020-03-15] MEDS: AMLODIPINE 10 MG TABLET PO SCH (08:49)
[2020-03-15 14:40] LABS: BASOPHILS % (AUTO) 0.9 % (0.0-2.0); EOSINOPHILS # (AUTO) 0.1 K/uL (0.0-0.7); EOSINOPHILS % (AUTO) 2.7 % (0.0-7.0); HEMATOCRIT 34.6 % (31.2-41.9); HEMOGLOBIN 11.5 g/dL (10.9-14.3); LYMPHOCYTES % (AUTO) 22.2 % (20.5-51.5); MEAN CORPUSCULAR HEMOGLOBIN 27.1 uug (24.7-32.8); MEAN CORPUSCULAR HGB CONC 33 g/dL (32.3-35.6); MEAN CORPUSCULAR VOLUME 81.6 fL (75.5-95.3); MONOCYTES # (AUTO) 0.6 K/uL (2.0-10.0); MONOCYTES % (AUTO) 13.7 % (0.0-11.0); NEUTROPHILS # (AUTO) 2.6 K/uL (1.8-8.9); NEUTROPHILS % (AUTO) 60.5 % (38.5-71.5); PLATELET COUNT (AUTO) 371 K/uL (179-408); RED BLOOD CELL COUNT(AUTO) 4.24 MIL/uL (3.63-4.92); WHITE BLOOD COUNT (AUTO) 4.4 K/uL (3.8-11.8)
[2020-03-15 15:11] LABS: BILIRUBIN,TOTAL 0.5 mg/dL (0.2-1.0); CREATININE 0.6 mg/dL (0.6-1.3); MAGNESIUM 2.3 mg/dL (1.8-2.4); POTASSIUM 4.3 mmol/L (3.5-5.1); TOTAL PROTEIN, SERUM 7.1 g/dL (6.4-8.2)
--- NOTE | 2020-03-15 15:42 | NUR ---
GPS: Nursing Notes: Discharge Notes: Patient is awake and responding to her name, compliant with her medications, resistant with nursing care at times, needs prompting with ADL's, denies any SI/HI, denies any AH/VH, denies any pain or discomfort, denies any SOB, discharge to [facility]. [place] [address] [place] [address] . transported to facility via ambulance, report given to nurse - SHRIAZ Leblanc. Patient will follow-up at the facility with Dr. Irby Psychiatrist and Dr. Garcia Water Control Supervisor. Patient presents with calm mood and congruent affect. Pts daughter, Kindra ([phone]) is aware and agreeable with discharge plan.
[2020-03-15] MEDS ORDERED: FLUOXETINE HCL 20 MG CAPSULE PO SCH (21:00)
[2020-03-16] MEDS ORDERED: FLUOXETINE HCL 20 MG CAPSULE PO SCH (09:00)
== END 2020-03-15 15:45 | DRG 885 ==
LOC: ER 23:04 → GPS 02-26 03:54
PROVIDERS: ADMIT Psychiatry & Neurology Psychiatry; ATTEND Internal Medicine
DX: F25.9 Schizoaffective disorder, unspecified (principal); N17.0 Acute kidney failure with tubular necrosis; N39.0 Urinary tract infection, site not specified; E44.0 Moderate protein-calorie malnutrition; E87.1 Hypo-osmolality and hyponatremia; F23 Brief psychotic disorder; I10 Essential (primary) hypertension; Z79.899 Other long term (current) drug therapy; E78.5 Hyperlipidemia, unspecified; R62.7 Adult failure to thrive; Z86.711 Personal history of pulmonary embolism; Z68.21 Body mass index [BMI] 21.0-21.9, adult; E88.09 Other disorders of plasma-protein metabolism, not elsewhere classified; R73.9 Hyperglycemia, unspecified
CPT/HCPCS: 36415; 71045; 82652; 83550; 83735; 84100; 84443; 85025; 87086; A4663; J1630; J1631